=== PATIENT | female | born 1945 | race Caucasian/White ===

== ENCOUNTER 2020-05-29 15:55 | Emergency (ER) | payer MEDICARE ==
[~2020-05-29] VITALS: Ht 170.2 cm; Wt 81.7 kg
[2020-05-29 16:24] LABS: ABSOLUTE BASOPHILS 0.1 thou/uL (0.0-0.2); ABSOLUTE EOSINOPHILS 0.2 thou/uL (0.0-0.7); ABSOLUTE LYMPHOCYTES 1.2 thou/uL (0.8-5.3); ABSOLUTE MONOCYTES 0.4 thou/uL (0.0-1.2); ABSOLUTE NEUTROPHILS 3.6 thou/uL (1.6-8.1); BASOPHILS 1.2 %; EOSINOPHILS 3.3 %; HEMATOCRIT 29.6 % (37.0-47.0); HEMOGLOBIN 9.1 gm/dL (12.0-15.0); LYMPHOCYTES 21.3 %; MCH 25.8 pg (26.0-34.0); MCHC 30.7 g/dL (28.0-37.0); MCV 84.1 fL (80.0-100.0); MONOCYTES 7.9 %; MPV 8.6 fl. (7.2-11.1); NUCLEATED RBCS 0 /100WBC; PLATELET COUNT* 246 thou/uL (150-400); POLYS 66.3 %; RBC 3.52 mil/uL (4.20-5.00); RDW-CV 19.3 % (10.5-14.5); WBC 5.4 thou/uL (4.0-11.0)
[2020-05-29 16:32] LABS: URINE BILIRUBIN NEGATIVE (Negative); URINE BLOOD 3+ (Negative); URINE CLARITY TURBID; URINE COLOR RED; URINE GLUCOSE-RANDOM NEGATIVE (Negative); URINE KETONES NEGATIVE (Negative); URINE LEUKOCYTES-REFLEX TRACE (Negative); URINE NITRITE-REFLEX NEGATIVE (Negative); URINE PROTEIN 2+ (Negative); URINE SPECIFIC GRAVITY 1.025 (1.005-1.030); URINE UROBILINOGEN 0.2 E.U./dl (0.2-1.0)
[2020-05-29 16:35] LABS: CALCIUM 6.1 mg/dL (8.5-10.1); CREATININE 2.4 mg/dL (0.6-1.3); POTASSIUM 3.4 mmol/L (3.5-5.1)
[2020-05-29 16:39] LABS: ALBUMIN 2.4 g/dL (3.4-5.0); TOTAL BILIRUBIN 0.5 mg/dL (<0.1-1.0); TOTAL PROTEIN 4.8 g/dL (6.4-8.2)
[2020-05-29 16:47] LABS: CASTS None Seen /LPF (None Seen); CRYSTALS None Seen /LPF (None Seen); SQUAMOUS 0-3 Few /LPF (0-3); URINE RBC >20 Many /HPF (0-2); URINE WBC-REFLEX 6-15 Few /HPF (0-5)
--- NOTE | 2020-05-29 17:25 | EKG ---
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: : 1945 Requested By: Dl Barnett Order Number: [id number] MD: Rubén Andres Measurements Intervals [place] Rate: 114 P: OK: QRS: 90 QRSD: 86 T: QT: 362 QTc: 499 Interpretive Statements Atrial flutter with predominant 2:1 AV block Borderline right axis deviation Anteroseptal infarct, old Nonspecific repol abnormality, diffuse leads ST elevation, consider inferior injury No previous ECG available for comparison Electronically Signed On 05-29-2020 17:25:31 LETTERER by Rubén Andres [email or web address] <ELECTRONICALLY SIGNED> By: Rubén Andres MD, FACC 05/29/20 1725 1557 1557 Rubén Andres MD, FACC /EPI
[2020-05-29] MEDS ORDERED: PERCOCET 5-3251 EACH PO (17:43)
[2020-05-29] MEDS ORDERED: FLOMAX0.4 MG PO (17:43)
[2020-05-29] MEDS ORDERED: CIPROFLOXACIN500 M1 PO (17:43)
[2020-05-29 17:48] VITALS: BP 125/89
== END 2020-05-29 17:48 | disposition home or self-care (01) ==
LOC: M.ERS 15:55
PROVIDERS: Family Medicine
DX: N20.0 Calculus of kidney (principal); N39.0 Urinary tract infection, site not specified; Z98.51 Tubal ligation status; Z88.2 Allergy status to sulfonamides